=== PATIENT | male | born 1970 | race Caucasian/White ===

== ENCOUNTER 2020-03-03 15:41 | Emergency (ER) | payer OTHER, SELFPAY ==
[2020-03-03 15:48] VITALS: BP 146/83; PULSE 72; RESP 10; TEMP 36.5; O2SAT 98; BMI 26.9
--- NOTE | 2020-03-03 15:59 | ECG_ITS ---
Test Reason : CHEST PAIN Blood Pressure : / mmHG Vent. Rate : 070 BPM Atrial Rate : 070 BPM P-R Int : 132 ms QRS Dur : 084 ms QT Int : 384 ms P-R-T Axes : 044 041 025 degrees QTc Int : 414 ms Normal sinus rhythm Normal ECG When compared with ECG of 19-OCT-2018 10:06, No significant change was found Referred By: Any Villareal Electronically Signed By:NITIN HARDY
--- NOTE | 2020-03-03 15:59 | XR_ITS ---
EXAMINATION: XR CHEST CLINICAL INFORMATION: Chest pain. COMPARISON: None TECHNIQUE: Frontal view of the chest was obtained. FINDINGS: No significant abnormality is noted involving the heart, lungs, mediastinum, bony thorax or soft tissues. XR/XR chest 1V IMPRESSION: Unremarkable examination.
--- NOTE | 2020-03-03 16:01 | ED.CHESTPAIN ---
HPI - Chest Pain General Chief Complaint: Chest Pain Stated Complaint: CHEST PAIN Time Seen by Provider: 03/03/20 15:52 Source: patient Mode of arrival: ambulatory History of Present Illness HPI narrative: 50-year-old male with no significant past medical history presented to ED complaining of sudden onset chest tightness 1 hour ago, constant since onset, and also reports feels like moisture in his lungs since this morning. Reports mild dry cough. Denies radiation of pain. Denies fever, chills, recent travel, LE edema, calf tenderness, nausea/vomiting MD complaint: chest heaviness Related Data Allergies Allergy/AdvReac Type Severity Reaction Status Date / Time ampicillin [AMPICILLIN] Allergy Unknown UNKNOWN Unverified 12/08/19 19:43 Review of Systems Review of Systems: Constitutional: No Weight loss, No Fever, No Chills ENT/Mouth: No Hearing loss, No Ear Pain, No Nasal Congestion, No sore throat, No Rhinorrhea Cardiovascular: + Chest Pain, No SOB, No Edema, No Palpitations Respiratory: No Cough, No Sputum, No Wheezing, No Smoke Exposure, No Dyspnea Gastrointestinal: No Nausea, No Vomiting, No Abdominal pain Genitourinary:= No Dysuria, No Urinary Frequency Musculoskeletal: No joint pain, No Myalgias, No Joint Swelling Skin: No Skin Lesions, No rash Yes all other systems are reviewed and are negative PMFSH Past Medical History Medical History (Updated 03/03/20 @ 19:20 by ION Karimi) No known health problems Social History Social History Alcohol intake: current Alcohol intake frequency: holidays/special occasions only Smoking Status: Never smoker Use of substances other than those prescribed or required for medical reasons: No Advance Directives: No Advance Directives Information Provided: No Physical Exam Vital Signs: Vital Signs: Last Vital Signs Temp 98.5 F 03/03/20 18:20 Pulse 70 03/03/20 18:20 Resp 20 03/03/20 18:20 BP 119/62 03/03/20 18:20 Pulse Ox 98 03/03/20 18:20 Body Mass Index 26.9 Course Course Course Narrative: -mild leukopenia wbc's 4.5, H&H stable, initial troponin negative, labs otherwise unremarkable CXR unremarkable -2015--repeat troponin negative Lab and imaging results discussed with patient including worrisome signs and symptoms and strict return precautions. Patient is to follow-up with his PCP and Cardiology MDM - Chest Pain MDM Narrative Medical decision making narrative: 50-year-old male with no significant past medical history presented to ED complaining of sudden onset chest tightness 1 hour ago, constant since onset, and also reports feels like moisture in his lungs since this morning. Reports mild dry cough. Denies radiation of pain. Denies fever, chills, recent travel, LE edema, calf tenderness, nausea/vomiting Lab Data Result diagrams: 03/03/20 16:11 03/03/20 16:11 Labs: Lab Results 03/03/20 03/03/20 03/03/20 Range/Units 16:10 16:11 16:11 WBC 4.5 L (4.8-10.8) X10*3/uL RBC 4.43 L (4.60-5.80) X10*6/uL Hgb 13.7 L (14.0-18.0) g/dl Hct 40.3 L (42-52) % MCV 91.0 (80-98) fL MCH 30.9 (27.0-33.0) pg MCHC 34.0 (31.0-36.0) g/dl RDW 12.6 (11.0-16.0) % Plt Count 178 (160-400) X10*3/uL MPV 10.3 (9.4-12.4) fL Immature Gran % (Auto) 0.2 (0.0-0.4) % Neut % (Auto) 73.2 H (45-73) % Lymph % (Auto) 13.0 L (20-40) % Brantley % (Auto) 12.1 H (2-11) % Eos % (Auto) 1.1 (0-4) % Baso % (Auto) 0.4 (0-2) % Lymph # (Auto) 0.6 L (1.2-4.9) X10*3/uL Brantley # (Auto) 0.5 (0.1-1.2) X10*3/uL Eos # (Auto) 0.1 (0.0-0.4) X10*3/uL Baso # (Auto) 0.0 (0.0-0.2) X10*3/uL Abs Immat Gran (auto) 0.01 (0.00-0.03) X10*3/uL Absolute Neuts (auto) 3.3 (2.0-8.3) X10*3/uL Absolute Nucleated RBC 0.000 (0.0-0.012) X10*3/uL Nucleated RBC % (auto) 0.0 (0.0-0.2) /100WBC Smear Tech's Comments VERIFIED Hold Blue Top SEE NOTE Sodium (135-145) mmol/L Potassium (3.3-5.1) mmol/l Chloride (96-108) mmol/L Carbon Dioxide (22-29) mmol/L Anion Gap (12-20) BUN (9-16) mg/dL Creatinine (0.5-1.4) mg/dL Estim Creat Clear Calc Estimated GFR Random Glucose (60-115) mg/dL Calcium (8.4-10.2) mg/dL Total Bilirubin (0.0-1.0) mg/dL Direct Bilirubin (0.0-0.5) mg/dL AST (5-37) U/L ALT (0-40) U/L Alkaline Phosphatase (39-117) U/L Troponin I High Sens < 3.5 (<3.5-35.0) ng/L B-Natriuretic Peptide (<100) pg/mL Total Protein (6.5-8.0) g/dL Albumin (3.5-5.0) g/dL 03/03/20 03/03/20 Range/Units 16:11 16:11 WBC (4.8-10.8) X10*3/uL RBC (4.60-5.80) X10*6/uL Hgb (14.0-18.0) g/dl Hct (42-52) % MCV (80-98) fL MCH (27.0-33.0) pg MCHC (31.0-36.0) g/dl RDW (11.0-16.0) % Plt Count (160-400) X10*3/uL MPV (9.4-12.4) fL Immature Gran % (Auto) (0.0-0.4) % Neut % (Auto) (45-73) % Lymph % (Auto) (20-40) % Brantley % (Auto) (2-11) % Eos % (Auto) (0-4) % Baso % (Auto) (0-2) % Lymph # (Auto) (1.2-4.9) X10*3/uL Brantley # (Auto) (0.1-1.2) X10*3/uL Eos # (Auto) (0.0-0.4) X10*3/uL Baso # (Auto) (0.0-0.2) X10*3/uL Abs Immat Gran (auto) (0.00-0.03) X10*3/uL Absolute Neuts (auto) (2.0-8.3) X10*3/uL Absolute Nucleated RBC (0.0-0.012) X10*3/uL Nucleated RBC % (auto) (0.0-0.2) /100WBC Smear Tech's Comments Hold Blue Top Sodium 139 (135-145) mmol/L Potassium 4.2 (3.3-5.1) mmol/l Chloride 104 (96-108) mmol/L Carbon Dioxide 24 (22-29) mmol/L Anion Gap 15 (12-20) BUN 22 H (9-16) mg/dL Creatinine 1.34 (0.5-1.4) mg/dL Estim Creat Clear Calc 76.6 Estimated GFR 56 Random Glucose 95 (60-115) mg/dL Calcium 9.0 (8.4-10.2) mg/dL Total Bilirubin 0.9 (0.0-1.0) mg/dL Direct Bilirubin 0.4 (0.0-0.5) mg/dL AST 26 (5-37) U/L ALT 15 (0-40) U/L Alkaline Phosphatase 48 (39-117) U/L Troponin I High Sens < 3.5 (<3.5-35.0) ng/L B-Natriuretic Peptide 13 (<100) pg/mL Total Protein 6.7 (6.5-8.0) g/dL Albumin 4.5 (3.5-5.0) g/dL Discharge Plan Discharge Clinical Impression: Chest pain Patient Disposition: Home, Self-Care Instructions: Chest Pain (ED) Referrals: Samuel Kenney MD [Physician] - 1 week
[2020-03-03] MEDS: Aspirin Enteric Coated 325 MG TABLET.DR PO (16:05)
[2020-03-03 16:19] LABS: Basophils Percent Auto 0.4 % (0-2); Eosinophils Absolute Auto 0.1 X10*3/uL (0.0-0.4); Eosinophils Percent Auto 1.1 % (0-4); Hematocrit 40.3 % (42-52); Hemoglobin 13.7 g/dl (14.0-18.0); Imm Gran Abs Auto 0.01 X10*3/uL (0.00-0.03); Imm Gran Pct Auto 0.2 % (0.0-0.4); Lymphocytes Absolute Auto 0.6 X10*3/uL (1.2-4.9); MANUAL DIFF FLAG SCAN; Mean Corpuscular Hemoglobin 30.9 pg (27.0-33.0); Mean Platelet Volume 10.3 fL (9.4-12.4); Monocytes Absolute Auto 0.5 X10*3/uL (0.1-1.2); Monocytes Percent Auto 12.1 % (2-11); Neutrophils Absolute Auto 3.3 X10*3/uL (2.0-8.3); Neutrophils Percent Auto 73.2 % (45-73); Platelet Count 178 X10*3/uL (160-400); Red Blood Count 4.43 X10*6/uL (4.60-5.80); Red Cell Distribution Width 12.6 % (11.0-16.0); SCAN SMEAR FLAG 1; White Blood Count 4.5 X10*3/uL (4.8-10.8)
[2020-03-03 16:41] LABS: SLIDE REVIEW VERIFIED
[2020-03-03 16:45] LABS: Alanine Aminotransferase 15 U/L (0-40); Albumin Level 4.5 g/dL (3.5-5.0); Alkaline Phosphatase 48 U/L (39-117); Anion Gap 15 (12-20); Aspartate Amino Transferase 26 U/L (5-37); Bilirubin Direct 0.4 mg/dL (0.0-0.5); Bilirubin Total 0.9 mg/dL (0.0-1.0); Blood Urea Nitrogen 22 mg/dL (9-16); Carbon Dioxide 24 mmol/L (22-29); Chloride 104 mmol/L (96-108); Creatinine Clr Calc Pharmacy 76.6; Estimated Glomerular Filt Rate 56; Glucose Random 95 mg/dL (60-115); Potassium 4.2 mmol/l (3.3-5.1); Sodium 139 mmol/L (135-145); Total Protein 6.7 g/dL (6.5-8.0)
[2020-03-03 16:50] LABS: B Type Natriuretic Peptide 13 pg/mL (<100); Troponin-I High Sensitivity < 3.5 ng/L (<3.5-35.0)
[2020-03-03 18:20] VITALS: BP 119/62; PULSE 70; RESP 20; TEMP 36.9; O2SAT 98
[2020-03-03 20:00] LABS: Troponin-I High Sensitivity < 3.5 ng/L (<3.5-35.0)
[2020-03-03] MEDS: Famotidine/PF 20 MG/2 ML VIAL IVPUSH (20:24)
[2020-03-03] MEDS: Lidocaine HCl Viscous 2 % 15 ML SOLUTION MUCOUS MEM (20:24)
[2020-03-03] MEDS: Magnesium Hydrox/Alum Hydrox 30 ML ORAL.SUSP PO (20:24)
[2020-03-03] MEDS: Butalb/Acetamin/Caff 50/325/40 TABLET 1 TAB PO (20:33)
[2020-03-03 20:34] VITALS: BP 133/76; RESP 69
== END 2020-03-03 20:42 | disposition home or self-care (01) ==
PROVIDERS: Physician Assistant; Emergency Provider Emergency Medicine; PCP Internal Medicine
DX: R07.9 Chest pain, unspecified (principal)
CPT/HCPCS: 36415; 71045; 80048; 80076; 83880; 84484; 85025; 93005; 96374; 99284; U0003